=== PATIENT | female | born 1945 | race Caucasian/White ===

== ENCOUNTER 2022-07-11 11:16 | Outpatient (CLI) | payer MEDICARE | END 2022-07-11 11:17 | disposition home or self-care (01) | LOC: CSHMRI 11:16 | PROVIDERS: ATTEND Psychiatry & Neurology Neurology | DX: R41.3 Other amnesia (principal) | CPT/HCPCS: 70551 ==

== ENCOUNTER 2022-07-11 12:33 | Outpatient (CLI) | payer MEDICARE | END 2022-07-11 12:34 | disposition home or self-care (01) | LOC: CSHMAMMO 12:33 | PROVIDERS: ATTEND Family Medicine | DX: Z12.31 Encounter for screening mammogram for malignant neoplasm of breast (principal); Z13.820 Encounter for screening for osteoporosis; Z78.0 Asymptomatic menopausal state; Z80.3 Family history of malignant neoplasm of breast; M85.89 Other specified disorders of bone density and structure, multiple sites | CPT/HCPCS: 77063; 77067; 77080 ==

== ENCOUNTER 2022-09-24 12:22 | Outpatient (CLI) | payer MEDICARE | END 2022-09-24 12:23 | disposition home or self-care (01) | LOC: CSHULT 12:22 | PROVIDERS: ATTEND Family Medicine | DX: R31.29 Other microscopic hematuria (principal) | CPT/HCPCS: 76770 ==

== ENCOUNTER 2023-10-28 10:13 | Outpatient (CLI) | payer MEDICARE | END 2023-10-28 10:14 | disposition home or self-care (01) | LOC: CSHRAD 10:13 | PROVIDERS: ATTEND Family Medicine | DX: S29.012A Strain of muscle and tendon of back wall of thorax, initial encounter (principal); M47.814 Spondylosis without myelopathy or radiculopathy, thoracic region; M47.816 Spondylosis without myelopathy or radiculopathy, lumbar region | CPT/HCPCS: 72072; 72100 ==

== ENCOUNTER 2025-08-03 15:56 | Outpatient (CLI) | payer MEDICARE | END 2025-08-03 15:57 | disposition home or self-care (01) | LOC: CSHRAD 15:56 | PROVIDERS: ATTEND Surgery | DX: S32.011D Stable burst fracture of first lumbar vertebra, subsequent encounter for fracture with routine healing (principal) | CPT/HCPCS: 72100 ==